=== PATIENT | male | born 1935 ===

== ENCOUNTER 2017-09-07 07:02 | Observation (INO) ==
--- NOTE | 2017-09-07 10:15 | Internal Med History&Physical ---
Date of Encounter: 09/07/17 Time of Encounter: 10:12 Assessment and Plan (1) Dizziness Current visit: Yes Status: Acute Present presenting with her dizziness tend to fall to the right side with abnormal gait need further evaluation will order MRI and MRA of the head and brain consult neurology for further evaluation (2) Abnormal gait Current visit: Yes Status: Acute needs further evaluation (3) HTN (hypertension) Current visit: Yes Status: Chronic Chronic and uncontrolled Qualifiers: Hypertension type: essential hypertension Qualified Code(s): I10 - Essential (primary) hypertension (4) Hyperlipidemia Current visit: Yes Status: Chronic Chronic jugular lipid profile in a.m. Qualifiers: Hyperlipidemia type: pure hypercholesterolemia Qualified Code(s): E78.00 - Pure hypercholesterolemia, unspecified; E78.0 - Pure hypercholesterolemia (5) Smoking Current visit: Yes Status: Acute (6) Obesity Current visit: Yes Status: Chronic Qualifiers: Obesity type: due to excess calories Obesity classification: unspecified obesity classification Serious obesity comorbidity presence: unspecified whether serious comorbidity present Qualified Code(s): E66.09 - Other obesity due to excess calories Internal Medicine - H&P: HPI Chief complaint: dizziness and unstaeady gait Admitted From: Intrahospital Transfer Plans for Post Hospital Care: Home History of present illness: Mr. Shelby is a 81 year old male Patient transferred from [facility] in [place]. Patient with history of hypertension, high cholesterol, smoking history, obesity, chronic diarrhea. Patient presented to [facility] ER l due to dizziness he gets unsteady gait and tend to fall to the right side was seen at the hospital had a CT of the head done which was unremarkable blood pressure was 187/68 pulse 52 temperature was afebrile then transferred here for further evaluation of intractable subjective vertigo. Patient denies any nausea vomiting he was well until yesterday when he started having sensation that he is going to fall to the right side no room spinning mostly subjective vertigo. Past Med Surg Social Fam HX - Past Medical History Medical history: hyperlipidemia, hypertension - Past Surgical History Surgical History: cholecystectomy Internal Medicine - H&P: Meds Allopurinol [Zyloprim] 300 mg PO BID 09/07/17 [History] Donepezil [Aricept] 5 mg PO HS 09/07/17 [History] Gabapentin [Neurontin] 600 mg PO Q6H 09/07/17 [History] Lisinopril [Zestril] 10 mg PO DAILY 09/07/17 [History] Metoprolol [Lopressor] 25 mg PO BID 09/07/17 [History] Pravastatin Sodium [Pravachol] 20 mg PO HS 09/07/17 [History] Tramadol HCl [Ultram] 50 mg PO QID PRN 09/07/17 [History] 3 Allergy/AdvReac Type Severity Reaction Status Date / Time No Known Allergies Allergy Verified 09/07/17 09:12 All Systems PM: A 10-system review of systems was performed and is negative for pertinent findings except as documented above in the HPI. - Constitutional Constitutional: no chills, no fever(s), no night sweats - EENT Eyes: no change in vision, no discharge, no pain, no photophobia Ears: no ear discharge, no ear pain, no tinnitus Nose, mouth and throat: no dysphagia, no nasal discharge, no neck pain, no sore throat - Cardiovascular Cardiovascular ROS IM: no chest pain, no diaphoresis, no dyspnea, no lightheadedness, no palpitations, no syncope - Respiratory Respiratory: no cough, no dyspnea, no wheezing, no excessive phlegm production - Gastrointestinal Gastrointestinal: no abdominal pain, no diarrhea, no hematemesis, no hematochezia, no melena, no nausea, no vomiting - Musculoskeletal Musculoskeletal ROS IM: no numbness, no tingling - Integumentary Integumentary IM: no rash, no unusual bruising - Neurological Neurological ROS: abnormal gait, lack of coordination, no confusion, no convulsions, no focal weakness, no numbness, no tingling, no tremor(s) - Hematologic/Lymphatic Hematologic/Lymphatic: no easy bruising - Head Head exam: Present: atraumatic, normocephalic - Neck Neck exam general surgery: Present: supple, trachea midline. Absent: lymphadenopathy - Respiratory Respiratory exam: Present: CTAB. Absent: accessory muscle use, rales, rhonchi, wheezes - Cardiovascular Cardiovascular exam: Present: RRR, +S1, +S2. Absent: diastolic murmur, gallop, rubs, systolic murmur - GI/Abdominal GI/Abdominal exam: Present: normal bowel sounds, soft, no peritoneal signs. Absent: distended, tenderness - Extremities Exam Extremities exam: Present: warm, radial pulses palpable and symmetrical. Absent : calf tenderness, cyanotic, pedal edema
[2017-09-07] MEDS ORDERED: Acetaminophen 325 MG TABLET PO PRN (10:21)
[2017-09-07] MEDS ORDERED: Naloxone 0.4 MG/ML INJ IVP PRN (10:21)
[2017-09-07] MEDS ORDERED: traMADol 50 MG TABLET PO PRN (10:23)
[2017-09-07] MEDS: 0.9 % Sodium Chloride 1,000 ML IVC SCH (12:26)
[2017-09-07] MEDS: Gabapentin 300 MG CAPSULE PO SCH ×3 (12:26→22:07)
--- NOTE | 2017-09-07 13:51 | Neurology - Consult Note ---
Date of Encounter: 09/07/17 Time of Encounter: 13:47 Assessment and Plan (1) Dizziness Current Visit: Yes Status: Acute Patient neurological exam is non-focal non-lateralizing except: patient falls the the right while sitting on side of bed furthermore absent nystagmus absent dysdiadochokinesia and dysmetria dizziness not reproducible with changes in head position ear exam unremarkable CT head negative MRI, MRA head and neck negative for acute infarction but there is parenchyma volume loss and sequela of chronic microvascular ischemic changes. echocardiogram pending Pt consulted. Patient's dizziness likely peripheral in etiology. (2) HTN (hypertension) Current Visit: Yes Status: Chronic uncontrolled HTn reports BP runs 140s to 170s systolic currently 180/130 will need proper BP management and medications before discharge. Qualifiers: Hypertension type: essential hypertension Qualified Code(s): I10 - Essential (primary) hypertension (3) Hyperlipidemia Current Visit: Yes Status: Chronic continue atorvastatin lipid panel pending. Qualifiers: Hyperlipidemia type: pure hypercholesterolemia Qualified Code(s): E78.00 - Pure hypercholesterolemia, unspecified; E78.0 - Pure hypercholesterolemia (4) Smoking Current Visit: Yes Status: Acute hx of smoking reports does not smoke anymore (5) Obesity Current Visit: Yes Status: Chronic Qualifiers: Obesity type: due to excess calories Obesity classification: unspecified obesity classification Serious obesity comorbidity presence: unspecified whether serious comorbidity present Qualified Code(s): E66.09 - Other obesity due to excess calories History of Present Illness Chief complaint: dizziness HPI: Mr. Shelby is a 81 year old male presented with chief complaint of dizziness. Patient reports yesterday evening he was unable to get up from his house to go to spread because he he felt like he was falling to the right. He denied lightheadedness, room spinning, weakness on one side, slurred speech, facial drooping, numbness, vision changes, double vision, dysphagia. He denies nausea, vomiting, photophobia, phonophobia. He reports he has never had this before. Patient was eventually able to get to spread with the use of a walker. After falling asleep he will call up at 2:30 in the morning to go to the bathroom and again had the same sensation of falling to the right. Patient denies passing out, had trauma. Thereafter he called 911. Patient denies history of head trauma, seizures, stroke. Patient initially presented to [facility] where he was found to have blood pressure 187/[address] of the head was negative. Past Med Surg Social Fam HX - Past Medical History Medical history: hyperlipidemia, hypertension Psychiatric history: no psych history - Past Surgical History Surgical History: cholecystectomy - Social History Smoking Status: Never smoker Alcohol use: none Drug use: none Medications and Allergies Allopurinol [Zyloprim] 300 mg PO BID 09/07/17 [History] Donepezil [Aricept] 5 mg PO HS 09/07/17 [History] Gabapentin [Neurontin] 600 mg PO Q6H 09/07/17 [History] Metoprolol [Lopressor] 25 mg PO BID 09/07/17 [History] Pravastatin Sodium [Pravachol] 20 mg PO HS 09/07/17 [History] RX: Lisinopril [Zestril] 10 mg PO DAILY 09/07/17 [History] Tramadol HCl [Ultram] 50 mg PO QID PRN 09/07/17 [History] 3 Allergy/AdvReac Type Severity Reaction Status Date / Time No Known Allergies Allergy Verified 09/07/17 09:12 All Systems: The remainder of the systems were reviewed and are negative Review of Systems: Constitutional: Denies fever, reports chills HEENT: Denies headache, vision changes,sore throat, rhinorrhea, reports chronic neck pain. Denies ear pain, discharge Heart: Denies chest pain palpitations Lungs: Denies shortness of breath cough Abdomen: Denies abdominal pain nausea vomiting. Reports chronic diarrhea Back: Reports chronic back pain Kidney: Denies dysuria, hematuria Skin: warm and dry Extremities: Denies swelling, pain Neuro: As per history of present illness Physical Examination - Vital Signs Vital Signs: Initial Vital Signs Pulse Resp BP Pulse Ox 54 18 184/138 95 09/07/17 13:11 09/07/17 13:11 09/07/17 13:11 09/07/17 13:11 - Exam Exam: General: Pleasant without distress HEENT: Head atraumatic, normocephalic, EOMI, PERRL, neck nontender to palpation , absent lymphadenopathy, Moist Mucous Membranes, tympanic membranes visible, intact absent ear discharge Heart: Sinus bradycardia Lungs: Clear to auscultation bilaterally Abdomen: Soft nontender, nondistended positive bowel sounds Skin: warm and dry Extremities: 1+ pedal edema bilaterally, bilateral knee replacement Vascular: Pedal and radial pulses 2 out of 4 - Constitutional General appearance: comfortable - Neurologic Sensorimotor examination: intact Detailed motor examination: full strength in all major muscle groups Motor examination - right side: 4/5: loftsman, hip flexors, 5/5: deltoids, biceps, triceps, wrist flexion, wrist extension, tibialis Anterior, quadriceps, toe extension (EHL), plantarflexion Motor examination - left side: 4/5: biceps, 5/5: deltoids, triceps, wrist flexion, wrist extension, hip flexors, loftsman, quadriceps, tibialis Anterior, toe extension (EHL), plantarflexion Detailed sensory examination: other (D's decreased sensation to light touch and pinprick in the right lower extremity below the knee otherwise intact.) Reflex and gait examination: other (Unable to assess gait as patient will fall back into bed when sitting up on the side of bed) Reflexes: Biceps: 2+, Triceps: 2+, Brachioradialis: 2+, Patella: 2+, Achilles: 2 + Mental Status Examination: awake, alert, oriented to person, oriented to place, oriented to time, follows commands appropriately, answers questions appropriately, no agnosia, no aphasia, no aproxia Cranial nerve examination: PERRL, EOMI, visual morton intact, sensory to face intact, mastication intact, no facial asymmetry is present, no dysarthria, hearing is intact symmetrically, soft palate elevates bilaterally upon phonation , flexes SCM and trapezius muscles symmetrically with full power, tongue protrudes midline, no atrophy or facial fasiculations present Cerebellar examination: no dysmetria, performs finger to nose and heel to carmen symmetrically without ataxia, no difficulty with rapid alternating movements Consult Discharge Plan - Plan Referrals: Dalia Mallory MD [Primary Care Provider] -
[2017-09-08 01:43] LABS: Basophils % 0.3 %; Eosinophils # 0.3 K/mcL (0.0-0.6); Hematocrit 39.8 % (37.5-50.1); Hemoglobin 13.2 g/dL (12.9-16.9); Immature Granulocytes % 0.2 % (0-4); Lymphocytes # 1.9 K/mcL (0.6-4.6); Lymphocytes % 22.6 %; Mean Corpuscular HGB Conc 33.2 g/dL (31.6-35.5); Mean Corpuscular Hemoglobin 32.8 pg (28.0-33.3); Mean Platelet Volume 10.5 fL (9.4-12.4); Monocytes # 0.8 K/mcL (0.0-1.3); Monocytes % 9.1 %; Neutrophils # 5.6 K/mcL (1.6-8.9); Platelet Count 168 K/mcL (140-400); Red Blood Count 4.02 M/mcL (4.19-5.50); Red Cell Distribution Width 12.9 % (11.5-14.5); Segmented Neutrophils % 64.8 %
[2017-09-08 01:58] LABS: Alanine Aminotransferase 17 Units/L (7-52); Albumin 3.5 g/dL (3.5-5.7); Albumin/Globulin Ratio 1.3 (1.1-2.2); Alkaline Phosphatase 67 Units/L (34-104); Aspartate Amino Transferase 16 Units/L (13-39); BUN/Creatinine Ratio 16 (6-26); Bilirubin,Total 0.4 mg/dL (0.3-1.0); Blood Urea Nitrogen 18 mg/dL (8-23); Calcium 8.7 mg/dL (8.6-10.3); Carbon Dioxide 26 mEq/L (23-29); Chloride 108 mEq/L (98-107); Cholesterol 170 mg/dL (< 200); Globulin 2.7 g/dL (2.4-3.5); Glucose 105 mg/dL (70-105); HDL Cholesterol 39 mg/dL (40-59); Magnesium 1.7 mg/dL (1.6-2.6); Osmolality,Calculated 294 (280-300); Sodium 141 mEq/L (136-145); Total Protein 6.2 g/dL (6.4-8.9); Triglycerides 220 mg/dL (< 150); eGFR For African Americans > 60 (> 60); eGFR For Non-African Americans > 60 (> 60)
[2017-09-08 01:59] LABS: Chol/HDL Ratio 4.4 (0-4.9); LDL Cholesterol,Calculated 87 mg/dL (0-99)
[2017-09-08] MEDS: 0.9 % Sodium Chloride 1,000 ML IVC SCH (03:00)
[2017-09-08] MEDS: Gabapentin 300 MG CAPSULE PO SCH ×4 (04:46→22:15)
--- NOTE | 2017-09-08 09:09 | Neurology Progress Note ---
Date of Encounter: 09/08/17 Time of Encounter: 09:06 Assessment and Plan (1) Dizziness Current Visit: Yes Status: Acute resolved suspect peripheral vertigo, BPPV patient was started on meclizine yesterday recommend continuing meclizine outpatient and follow up with ENT recommend physical therapy reassess patient today if SNF is needed echocardiogram still pending (2) HTN (hypertension) Current Visit: Yes Status: Chronic better controlled today lisionpril increased by primary on metoprolol as well. patient is bradycardic may need to decrease metoprolol Qualifiers: Hypertension type: essential hypertension Qualified Code(s): I10 - Essential (primary) hypertension (3) Hyperlipidemia Current Visit: Yes Status: Chronic controlled LDL 87 continuestatin Qualifiers: Hyperlipidemia type: pure hypercholesterolemia Qualified Code(s): E78.00 - Pure hypercholesterolemia, unspecified; E78.0 - Pure hypercholesterolemia (4) Smoking Current Visit: Yes Status: Acute (5) Obesity Current Visit: Yes Status: Chronic Qualifiers: Obesity type: due to excess calories Obesity classification: unspecified obesity classification Serious obesity comorbidity presence: unspecified whether serious comorbidity present Qualified Code(s): E66.09 - Other obesity due to excess calories Subjective Principal diagnosis: Peripheral vertigo: BPPV Interval history: This morning patient is enjoying breakfast sitting in chair. He denies dizziness or feeling he will fall to the left. He denies headache, vision changes, tinnitus, numbness, tingling, weakness. He was evaluated by PT yesterday who stated he is to unsteady to be discharged home as he lives alone. Objective - Constitutional Vitals: Temp Pulse Resp BP Pulse Ox 97.8 F 57 16 146/54 98 09/08/17 07:16 09/08/17 07:53 09/08/17 07:16 09/08/17 07:16 09/08/17 07:16 - Extremities Exam Extremities exam: Present: pedal edema (mild b/l ) - Neurological Exam Sensorimotor examination: Present: intact Motor examination - right side: 5/5: deltoids, biceps, triceps, wrist flexion, wrist extension, music rehabilitation therapist, hip flexors, tibialis Anterior, quadriceps, toe extension (EHL), plantarflexion Motor examination - left side: 4/5: biceps, 5/5: deltoids, triceps, wrist flexion, wrist extension, hip flexors, music rehabilitation therapist, quadriceps, tibialis Anterior, toe extension (EHL), plantarflexion Sensation intact: Present: other (D's decreased sensation to light touch and pinprick in the right lower extremity below the knee otherwise intact.) Reflex and gait examination: other (Unable to assess gait as patient will fall back into bed when sitting up on the side of bed) Mental Status Examination: Present: awake, alert, oriented to person, oriented to place, oriented to time, follows commands appropriately, answers questions appropriately, no agnosia, no aphasia, no aproxia Cranial nerve examination: Present: PERRL, EOMI, visual morton intact, sensory to face intact, mastication intact, no facial asymmetry is present, no dysarthria, hearing is intact symmetrically, soft palate elevates bilaterally upon phonation, flexes SCM and trapezius muscles symmetrically with full power, tongue protrudes midline, no atrophy or facial fasiculations present Cerebellar examination: Present: no dysmetria, performs finger to nose and heel to carmen symmetrically without ataxia, no difficulty with rapid alternating movements Results - Laboratory Findings CBC and BMP: 09/08/17 01:23 09/08/17 01:23 Abnormal lab findings: Abnormal lab results RBC 4.02 M/mcL (4.19-5.50) L 09/08/17 01:23 Chloride 108 mEq/L (98-107) H 09/08/17 01:23 Serum Total Protein 6.2 g/dL (6.4-8.9) L 09/08/17 01:23 Triglycerides 220 mg/dL (< 150) H 09/08/17 01:23 VLDL Cholesterol, Calc 44 mg/dL (< 31) H 09/08/17 01:23 HDL Cholesterol 39 mg/dL (40-59) L 09/08/17 01:23 Consult Discharge Plan - Plan Referrals: Dalia Mallory MD [Primary Care Provider] -
--- NOTE | 2017-09-08 13:16 | ENT - Consult Note ---
<Brianda Barajas - Last Filed: 09/08/17 17:02> Date of Encounter: 09/08/17 Time of Encounter: 11:00 Assessment and Plan (1) Dizziness Status: Acute Patient seen and examined at bedside today. Lonsdale concepcion pike completed at bedside and negative bilaterally. Linda maneuver completed to the left due to increased reported symptoms on the left. Patient does not report symptoms consistent with true vertigo at this time. He denies room spinning, blurred vision, nausea or vomiting. He describes his dizziness as a sensation of facial burning and becoming light headed when standing or walking quickly. Patient's symptoms may be associated with viral labrynthitis, which may take some time to resolve. Patient does report improvement in symptoms while taking meclizine. Patient to follow up outpatient for scheduled VNG and audiogram testing to further evaluate vestibular system. ENT is signing off at this time. History of Present Illness Consult date: 09/08/17 Reason for ENT Consult: vertigo Requesting physician: Meghan Singh History of present illness: Patient is a 81 year old male admitted for complaint of dizziness. ENT consulted for possible vertigo. Patient reports his symptoms of dizziness and imbalance, worse on the right began yesterday. Patient was seen at [facility] for these complaints. CT of head was obtained which was unremarkable. Patient was then transferred to [place], MRI of brain completed and also negative. Patient denies any prior episodes or history of vertigo. He denies any recent or previous head trauma. Patient describes his "dizziness" as being light headed with facial burning, with associated imbalance. Patient reports that symptoms are worse when he rises quickly. Patient denies exacerbation of his symptoms with rolling or turning his head in a certain direction. He denies room spinning, blurred vision, nausea, or vomiting. Past Med Surg Social Fam HX - Past Medical History Medical history: hyperlipidemia, hypertension Psychiatric history: no psych history - Past Surgical History Surgical History: cholecystectomy - Social History Smoking Status: Never smoker Alcohol use: none Drug use: none Medications and Allergies Allopurinol [Zyloprim] 300 mg PO BID 09/07/17 [History] Donepezil [Aricept] 5 mg PO HS 09/07/17 [History] Gabapentin [Neurontin] 600 mg PO Q6H 09/07/17 [History] Metoprolol [Lopressor] 25 mg PO BID 09/07/17 [History] Pravastatin Sodium [Pravachol] 20 mg PO HS 09/07/17 [History] Tramadol HCl [Ultram] 50 mg PO QID PRN 09/07/17 [History] Lisinopril [Zestril] 20 mg PO DAILY #30 tablet 09/09/17 [Rx] Meclizine [Antivert] 25 mg PO BID #10 tablet 09/09/17 [Rx] 3 Allergy/AdvReac Type Severity Reaction Status Date / Time No Known Allergies Allergy Verified 09/07/17 09:12 ENT - ROS - EENT Nose, mouth and throat: dizziness ENT Exam Initial Vital Signs Pulse Resp BP Pulse Ox 54 18 184/138 95 09/07/17 13:11 09/07/17 13:11 09/07/17 13:11 09/07/17 13:11 - General physical appearance well developed, well nourished, no distress - Eyes PERRL, normal ocular movement - ENT normal pinna, normal nares, normal mucosa, CN 2-12 grossly intact, Other (oral mucosa normal, teeth with some decay, tonsils surgically absent, right ear with non obstructing cerumen, monomeric segment noted to anterior portion of right TM , left ear normal TM. ) - Neck no masses, trachea midline, no lymphadectomy - Respiratory normal expansion, normal respiratory effort - Neurologic other (bianca-concepcion pike completed and negative bilaterally) Exam Initial Vital Signs Pulse Resp BP Pulse Ox 54 18 184/138 95 09/07/17 13:11 09/07/17 13:11 09/07/17 13:11 09/07/17 13:11 Results - Labs 09/08/17 01:23 09/08/17 01:23 Abnormal lab results RBC 4.02 M/mcL (4.19-5.50) L 09/08/17 01:23 Chloride 108 mEq/L (98-107) H 09/08/17 01:23 Serum Total Protein 6.2 g/dL (6.4-8.9) L 09/08/17 01:23 Triglycerides 220 mg/dL (< 150) H 09/08/17 01:23 VLDL Cholesterol, Calc 44 mg/dL (< 31) H 09/08/17 01:23 HDL Cholesterol 39 mg/dL (40-59) L 09/08/17 01:23 Diabetes panel 09/08/17 Range/Units 01:23 Sodium 141 (136-145) mEq/L Potassium 4.0 (3.5-5.1) mEq/L Chloride 108 H (98-107) mEq/L Carbon Dioxide 26 (23-29) mEq/L BUN 18 (8-23) mg/dL Creatinine 1.15 (0.70-1.30) mg/dL Glucose 105 (70-105) mg/dL Calcium 8.7 (8.6-10.3) mg/dL AST 16 (13-39) Units/L ALT 17 (7-52) Units/L Alkaline Phosphatase 67 (34-104) Units/L Albumin 3.5 (3.5-5.7) g/dL Triglycerides 220 H (< 150) mg/dL HDL Cholesterol 39 L (40-59) mg/dL Calcium panel 09/08/17 Range/Units 01:23 Calcium 8.7 (8.6-10.3) mg/dL Albumin 3.5 (3.5-5.7) g/dL Pituitary panel 09/08/17 Range/Units 01:23 Sodium 141 (136-145) mEq/L Potassium 4.0 (3.5-5.1) mEq/L Chloride 108 H (98-107) mEq/L Carbon Dioxide 26 (23-29) mEq/L BUN 18 (8-23) mg/dL Creatinine 1.15 (0.70-1.30) mg/dL Glucose 105 (70-105) mg/dL Calcium 8.7 (8.6-10.3) mg/dL Adrenal panel 09/08/17 Range/Units 01:23 Sodium 141 (136-145) mEq/L Potassium 4.0 (3.5-5.1) mEq/L Chloride 108 H (98-107) mEq/L Carbon Dioxide 26 (23-29) mEq/L BUN 18 (8-23) mg/dL Creatinine 1.15 (0.70-1.30) mg/dL Glucose 105 (70-105) mg/dL Calcium 8.7 (8.6-10.3) mg/dL Total Bilirubin 0.4 (0.3-1.0) mg/dL AST 16 (13-39) Units/L ALT 17 (7-52) Units/L Alkaline Phosphatase 67 (34-104) Units/L Albumin 3.5 (3.5-5.7) g/dL All other labs normal. Consult Discharge Plan - Plan Instructions: Lisinopril (By mouth), Meclizine (By mouth), Benign Paroxysmal Positional Vertigo (DC), Dizziness (GEN) Additional Instructions: Follow-up appointments: If there is not an appointment listed below, please call your physician and schedule a follow-up appointment. If you have congestive heart failure and your symptoms return, make an appointment with your physician. Medication List: Carry an up to date list of medications you are taking at all time. We have given you an updated medication list including any new medications that you have been prescribed. Please provide that list to your primary provider Symptoms: If your condition changes or you experience any of the following symptoms, notify your physician immediately: Unusual or worsening pain, fever, persistent nausea and vomiting, bleeding, increase in swelling (especially in your legs), sudden weight gain, extreme dizziness, chest pain, increased drainage or redness from a wound or incision. Go to the emergency department if you experience a problem with breathing. Weights: If you have a history of swelling or shortness of breath, weigh yourself daily and notify your physician if you have a weight gain of two or more pounds in one day or 5 or more pounds in a week. If you experience any of the warning signs for stroke: Sudden numbness or weakness of the face, arm or leg; especially on one side of the body, sudden confusion, trouble speaking or understanding, sudden trouble seeing in one or both eyes, sudden trouble walking, dizziness, loss of balance or coordination, sudden sever headache with no cause; Call 911 or go to the emergency room. Stroke is a medical emergency. Some risk factors for stroke: Age, cigarette smoking, diabetes, excessive alcohol consumption, family history , high blood pressure, overweight, physical inactivity, prior stroke, heart attack, diagnosis of carotid artery stenosis or other artery disease. If you smoke, STOP: Smoking or tobacco use significantly increases your risk of heart and lung disease. Your chance of disease greatly increases if you continue to smoke. For more information, call the [place] tobacco quit line for smoking cessation -NOW ( ) Referrals: Leanne Nolen, DO [Non-Partnered Physician] - (Please call for follow-up appointment within 1-2 weeks) Dalia Mallory MD [Primary Care Provider] - (Please call for follow-up appointment within 7-10 days) Prescriptions: Lisinopril [Zestril] 20 mg PO DAILY #30 tablet Meclizine [Antivert] 25 mg PO BID #10 tablet <Leanne Nolen - Last Filed: 09/14/17 13:08> Date of Encounter: 09/14/17 ENT Exam Initial Vital Signs Pulse Resp BP Pulse Ox 54 18 184/138 95 09/07/17 13:11 09/07/17 13:11 09/07/17 13:11 09/07/17 13:11 Exam Initial Vital Signs Pulse Resp BP Pulse Ox 54 18 184/138 95 09/07/17 13:11 09/07/17 13:11 09/07/17 13:11 09/07/17 13:11 Results - Labs 09/08/17 01:23 09/08/17 01:23 Abnormal lab results RBC 4.02 M/mcL (4.19-5.50) L 09/08/17 01:23 Chloride 108 mEq/L (98-107) H 09/08/17 01:23 Serum Total Protein 6.2 g/dL (6.4-8.9) L 09/08/17 01:23 Triglycerides 220 mg/dL (< 150) H 09/08/17 01:23 VLDL Cholesterol, Calc 44 mg/dL (< 31) H 09/08/17 01:23 HDL Cholesterol 39 mg/dL (40-59) L 09/08/17 01:23 All other labs normal. - Attending Attestation Patient was seen and examined by myself independently of the nurse practitioner and together with the nurse practitioner be formulated this assessment and plan. I do agree with the above assessment by the nurse practitioner. Patient does not complain of any true vertigo upon questioning in symptoms have seemed to improve. There is a possibility that he could be suffering from BPPV but is more likely viral vestibular neuritis causing his symptoms versus non- vestibular cause. Cannot fully evaluate inpatient. Recommend further evaluation as an outpatient with vestibular testing and audiogram once he is discharged. Ear exam is normal today with no fluid or obstruction of the ear canal.
--- NOTE | 2017-09-08 16:39 | Internal Med Progress Note ---
Date of Encounter: 09/08/17 Time of Encounter: 16:36 - Assessment and plan (1) Dizziness Current Visit: Yes Status: Acute Assessment and plan: presented with complaints of dizziness and feeling as if his equilibrium is off for the last 3 weeks. Patient also reports sensation of room spinning when he looks down. CVA ruled out with negative brain MRI and head/neck MRA. Evaluated by neurology who noted possible BPPV; meclizine started. Check orthostatics. ENT consulted (2) HTN (hypertension) Current Visit: Yes Status: Chronic Assessment and plan: per hx. BP elevated on arrival. Improved with resuming home BP medication. Monitor BP and titrate PRN Qualifiers: Hypertension type: essential hypertension Qualified Code(s): I10 - Essential (primary) hypertension (3) Hyperlipidemia Current Visit: Yes Status: Chronic Assessment and plan: per hx. Cont home statin Qualifiers: Hyperlipidemia type: pure hypercholesterolemia Qualified Code(s): E78.00 - Pure hypercholesterolemia, unspecified; E78.0 - Pure hypercholesterolemia (4) DVT prophylaxis Current Visit: Yes Status: Acute Assessment and plan: heparin - Time Spent With Patient Total time spent is greater than 50% in coordination of care (as documented) at patient's floor/unit and/or counseling patient: - Subjective Interval history: Seen and examined at bedside. Patient is new to me, information obtained from chart review and patient report. Patient reports feeling of disequilibrium and being off balance like he is going to fall for the last 3 weeks. He gets a sensation of the room spinning when he looks down and has to either workup for keep his eyes closed. No previous history. No blurred or double vision, no paresthesias. - Constitutional Vitals: Temp Pulse Resp BP Pulse Ox 98.4 F 51 16 141/75 96 09/08/17 11:04 09/08/17 11:04 09/08/17 11:04 09/08/17 11:04 09/08/17 11:04 General appearance: Present: A&O X 3, no acute distress - Head Head exam: Present: atraumatic, normocephalic - Eye Eye exam: Present: PERRL, conjuntiva pink, sclera anicteric Pupils: Present: PERRL - Neck Neck exam general surgery: Present: supple, trachea midline. Absent: lymphadenopathy - Respiratory Respiratory exam: Present: CTAB. Absent: accessory muscle use, rales, rhonchi, wheezes - Cardiovascular Cardiovascular exam: Present: RRR, +S1, +S2. Absent: diastolic murmur, gallop, rubs, systolic murmur - GI/Abdominal GI/Abdominal exam: Present: normal bowel sounds, soft, no peritoneal signs. Absent: distended, tenderness - Extremities Exam Extremities exam: Present: warm, radial pulses palpable and symmetrical. Absent : calf tenderness, cyanotic, pedal edema - Neurological Exam Neurological exam: Present: CN II-XII intact, oriented X3, no focal deficits. Absent: pronater drift, facial droop, speech deficit - Skin Skin exam: Present: dry, intact Internal Medicine: Result - Labs CBC & Chem 7: 09/08/17 01:23 09/08/17 01:23 Labs: Short CBC 09/08/17 Range/Units 01:23 WBC 8.6 (4.3-11.1) K/mcL Hgb 13.2 (12.9-16.9) g/dL Hct 39.8 (37.5-50.1) % Plt Count 168 (140-400) K/mcL Neutrophils # 5.6 (1.6-8.9) K/mcL BMP 09/08/17 01:23 Sodium 141 Potassium 4.0 Chloride 108 H Carbon Dioxide 26 BUN 18 Creatinine 1.15 Glucose 105 Calcium 8.7 Liver Function 09/08/17 Range/Units 01:23 Total Bilirubin 0.4 (0.3-1.0) mg/dL AST 16 (13-39) Units/L ALT 17 (7-52) Units/L Alkaline Phosphatase 67 (34-104) Units/L Albumin 3.5 (3.5-5.7) g/dL - Impressions Impressions Brain MRI 09/07/17 10:24 IMPRESSION: 1. No acute intracranial abnormality. Specifically, no acute infarction. 2. Senescent changes with parenchymal volume loss and sequela of chronic microvascular ischemic changes. 3. Unremarkable MRA of the neck. 4. Unremarkable MRA of the head. D/ / 09/07/2017 12:35:29 Jaden Vasquez MD / kim Interpreting Provider: Jaden Vasquez MD Head MRA 09/07/17 10:24 IMPRESSION: 1. No acute intracranial abnormality. Specifically, no acute infarction. 2. Senescent changes with parenchymal volume loss and sequela of chronic microvascular ischemic changes. 3. Unremarkable MRA of the neck. 4. Unremarkable MRA of the head. D/ / 09/07/2017 12:35:29 Jaden Vasquez MD / kim Interpreting Provider: Jaden Vasquez MD Neck MRA 09/07/17 10:24 IMPRESSION: 1. No acute intracranial abnormality. Specifically, no acute infarction. 2. Senescent changes with parenchymal volume loss and sequela of chronic microvascular ischemic changes. 3. Unremarkable MRA of the neck. 4. Unremarkable MRA of the head. D/ / 09/07/2017 12:35:29 Jaden Vasquez MD / kim Interpreting Provider: Jaden Vasquez MD Echocardiogram 09/07/17 10:27 Impressions: LVEF 60%. Mild left ventricular diastolic dysfunction. Normal right ventricular structure and function. No significant valvular dysfunction. No pulmonary hypertension. Left Ventricular Wall Motion: Rest Echo Findings All wall segments showed normal motion. Findings: Study Quality * Technically challenging due to poor echocardiographic windows. ECG Findings * Sinus bradycardia. Left Ventricle * LVEF 60%. * Mild left ventricular diastolic dysfunction. * Normal LV chamber size, wall thickness and function. Right Ventricle * Normal right ventricular structure and function. Left Atrium * Normal left atrial size. Right Atrium * Right atrium is not well visualized. Aortic Valve * Aortic valve not well visualized. * No aortic regurgitation. * No aortic stenosis. Mitral Valve * Mitral valve not well visualized. * No mitral regurgitation. * No mitral stenosis. Tricuspid Valve * Tricuspid valve not well visualized. * No tricuspid regurgitation. Pulmonic Valve * Pulmonic valve is not well visualized. * No pulmonic stenosis. * No pulmonic regurgitation. Pulmonary Artery * Pulmonary artery not well visualized. Aorta * Normally sized aortic root for BSA. * Ascending aorta not well visualized. Pericardium * There is no pericardial effusion present. Interatrial Septum * Interatrial septum not well evaluated. IVC * The IVC is not well evaluated. Consult Discharge Plan - Plan Referrals: Dalia Mallory MD [Primary Care Provider] -
[2017-09-08] MEDS: *HR* Heparin 5,000 UNIT/ML VIAL SQ SCH (22:16)
[2017-09-09] MEDS: Gabapentin 300 MG CAPSULE PO SCH ×2 (04:27→10:14)
[2017-09-09] MEDS: traMADol 50 MG TABLET PO PRN ×2 (04:27→10:16)
[2017-09-09] MEDS: *HR* Heparin 5,000 UNIT/ML VIAL SQ SCH (06:25)
[2017-09-09 11:14] VITALS: BP 169/75
--- NOTE | 2017-09-09 13:00 | Discharge Summary ---
- NOTES TO OUTPATIENT PROVIDER Notes to Outpatient Provider: BP uncontrolled, BINDU increased. Recommend follow- up within one week for BP recheck and renal function monitoring. Patient to follow up outpatient for scheduled VNG and audiogram testing to further evaluate vestibular system. Date of Encounter: 09/09/17 Time of Encounter: 12:58 - Discharge Diagnosis (1) Dizziness Priority: Primary Status: Acute Comments: presented with complaints of dizziness and feeling as if his equilibrium is off for the last 3 weeks and sensation of room spinning when he looks down. CVA ruled out with negative brain MRI and head/neck MRA. Evaluated by Neurology who noted possible BPPV; meclizine started. Dinora concepcion pike completed at bedside and negative bilaterally per ENT. ENT did not feel symptoms consistent with true vertigo, possibly viral labrynthitis. Symptoms resolved with meclizine. Continue meclizine for a total of 7 day course and then changed to PRN. Follow up with ENT outpatient for VNG and audiogram testing to further evaluate vestibular system. (2) HTN (hypertension) Priority: Primary Status: Chronic Comments: per hx. BP uncontrolled. Home BINDU increased. Recommend follow-up with PCP within one week for BP recheck and monitoring of renal function Qualifiers: Hypertension type: essential hypertension Qualified Code(s): I10 - Essential (primary) hypertension (3) Hyperlipidemia Priority: Primary Status: Chronic Comments: per hx. Cont home statin Qualifiers: Hyperlipidemia type: pure hypercholesterolemia Qualified Code(s): E78.00 - Pure hypercholesterolemia, unspecified; E78.0 - Pure hypercholesterolemia Hospital course: See assessment and plan for Hospital course Discharge discussed with: patient (Seen and examined at bedside. Patient says he feels back to baseline, all symptoms resolved. He was evaluated by PT/OT who initially recommended SNF however he was reevaluated 1 symptoms resolved and okay to discharge home with home healthcare. He has no complaints at time of discharge.) - Time Spent with Patient Total time spent providing and/or coordinating discharge services: - Discharge Medications Prescriptions: Lisinopril [Zestril] 20 mg PO DAILY #30 tablet Meclizine [Antivert] 25 mg PO BID #10 tablet Home Medications: Allopurinol [Zyloprim] 300 mg PO BID 09/07/17 [History] Donepezil [Aricept] 5 mg PO HS 09/07/17 [History] Gabapentin [Neurontin] 600 mg PO Q6H 09/07/17 [History] Metoprolol [Lopressor] 25 mg PO BID 09/07/17 [History] Pravastatin Sodium [Pravachol] 20 mg PO HS 09/07/17 [History] Tramadol HCl [Ultram] 50 mg PO QID PRN 09/07/17 [History] Lisinopril [Zestril] 20 mg PO DAILY #30 tablet 09/09/17 [Rx] Meclizine [Antivert] 25 mg PO BID #10 tablet 09/09/17 [Rx] Allergies/Adverse Reactions: 3 Allergy/AdvReac Type Severity Reaction Status Date / Time No Known Allergies Allergy Verified 09/07/17 09:12 Date of admission: 09/07/17 10:01 Primary care physician: Dalia Shell Consults: 09/07/17 10:23 Consult to Physician [CONS] Routine Consulting Provider: Tom Rubi Reason for Consult: dizziness, abnormal gait falling to right Time Notified: 10:23 Call Completed: No 09/07/17 10:28 PT [Consult to Physical Therapy] [CONS] Routine Comment: Evaluate, develop and implement POC Reason for Consult: evaluate and treat Does patient have active BEDREST order?: No Is patient medically & hemodynamically stable?: Yes 09/08/17 10:14 Consult to ENT [CONS] Routine Consulting Provider: RD Leblanc Reason for Consult: possible BPPV Call Completed: Yes Discharging clinician: Meghan Singh Anticipated date of discharge: 09/09/17 - Constitutional Vitals: Temp Pulse Resp BP Pulse Ox 98.2 F 60 16 169/75 96 09/09/17 11:12 09/09/17 11:12 09/09/17 11:12 09/09/17 11:12 09/09/17 11:12 General appearance: Present: A&O X 3, no acute distress - Head Head exam: Present: atraumatic, normocephalic - Eye Eye exam: Present: PERRL, conjuntiva pink, sclera anicteric Pupils: Present: PERRL - Neck Neck exam general surgery: Present: supple, trachea midline. Absent: lymphadenopathy - Respiratory Respiratory exam: Present: CTAB. Absent: accessory muscle use, rales, rhonchi, wheezes - Cardiovascular Cardiovascular exam: Present: RRR, +S1, +S2. Absent: diastolic murmur, gallop, rubs, systolic murmur - GI/Abdominal GI/Abdominal exam: Present: normal bowel sounds, soft, no peritoneal signs. Absent: distended, tenderness - Extremities Exam Extremities exam: Present: warm, radial pulses palpable and symmetrical. Absent : calf tenderness, cyanotic, pedal edema - Neurological Exam Neurological exam: Present: CN II-XII intact, oriented X3, no focal deficits. Absent: pronater drift, facial droop, speech deficit - Skin Skin exam: Present: dry, intact - Patient Status Disposition: Home, Self-Care Condition: Good Overall status at discharge: patient is progressing back to baseline - Discharge Instructions Instructions: Meclizine (By mouth), Dizziness (GEN), Benign Paroxysmal Positional Vertigo (DC), Lisinopril (By mouth) Follow Up With: Dalia Mallory MD [Primary Care Provider] - (Please call for follow-up appointment within 7-10 days) Leanne Nolen DO [Non-Partnered Physician] - (Please call for follow-up appointment within 1-2 weeks) - Diet and Activity Activity: ambulate only with your walker, as per physical therapy Diet: advance to your usual diet
--- NOTE | 2017-09-09 13:14 | Physician Discharge Referral ---
<Meghan Singh - Last Filed: 09/09/17 13:14> Home Health/Hosp Referral Info Transfer to: Home Health Attending Provider: Meghan Singh CNP Provider in Charge Post Discharge: PCP - Diagnosis (1) Dizziness Status: Acute (2) HTN (hypertension) Status: Chronic (3) Hyperlipidemia Status: Chronic - Respiratory Orders None Smoking Cessation: Smoking cessation has been advised. For more information, call the [place] Tobacco Quit Line at 1-468-VRWJ-NOW. - Diet/Nutrition Diet/Nutrition Orders: Regular - Activity Activity Orders: Walker - Services Needed Following services are medically necessary services: Nursing, Home Health Aide, Physical Therapy, Occupational Therapy - Transfer Medications Prescriptions: Lisinopril [Zestril] 20 mg PO DAILY #30 tablet Meclizine [Antivert] 25 mg PO BID #10 tablet Home Medications: Allopurinol [Zyloprim] 300 mg PO BID 09/07/17 [History] Donepezil [Aricept] 5 mg PO HS 09/07/17 [History] Gabapentin [Neurontin] 600 mg PO Q6H 09/07/17 [History] Metoprolol [Lopressor] 25 mg PO BID 09/07/17 [History] Pravastatin Sodium [Pravachol] 20 mg PO HS 09/07/17 [History] Tramadol HCl [Ultram] 50 mg PO QID PRN 09/07/17 [History] Lisinopril [Zestril] 20 mg PO DAILY #30 tablet 09/09/17 [Rx] Meclizine [Antivert] 25 mg PO BID #10 tablet 09/09/17 [Rx] Allergies/Adverse Reactions: 3 Allergy/AdvReac Type Severity Reaction Status Date / Time No Known Allergies Allergy Verified 09/07/17 09:12 Certification: Further, I certify that my clinical findings support that this patient is homebound (i.e. absences from home require considerable and taxing effort and are for medical reasons or religion services or infrequently or short duration when for other reasons) because: Homebound Reason: Patient requires assistance of a person or device to safely leave home Attestation: My signature below is to certify that this patient is under my care and that I, or nurse practitioner, or a physician's senior it assistant working with me, has a face-to -face encounter with this patient. <Siddharth Slater - Last Filed: 09/09/17 17:50> - Respiratory Orders Smoking Cessation: Smoking cessation has been advised. For more information, call the [place] Tobacco Quit Line at 3-682-TNPO-NOW. Certification: Further, I certify that my clinical findings support that this patient is homebound (i.e. absences from home require considerable and taxing effort and are for medical reasons or religion services or infrequently or short duration when for other reasons) because: Attestation: My signature below is to certify that this patient is under my care and that I, or nurse practitioner, or a physician's senior it assistant working with me, has a face-to -face encounter with this patient.
== END 2017-09-09 15:54 | disposition home or self-care (01) ==
LOC: 2SOUTHHOLD → 3NENU 16:51
PROVIDERS: ADMIT Internal Medicine Cardiovascular Disease; ATTEND Registered Nurse